=== PATIENT | female | born 1985 | race Caucasian/White ===

== ENCOUNTER 2019-11-26 10:01 | Emergency (ER) | payer SELFPAY ==
[~2019-11-26] VITALS: Ht 162.6 cm; Wt 77.1 kg
[2019-11-26 10:23] VITALS: BP 122/76
[2019-11-26] MEDS ORDERED: DIPHTH,PERTUSS(ACELL),TET TOX 0.5 ML DISP.SYRIN. VAX IM ONE (10:45)
--- NOTE | 2019-11-26 10:51 | RAD ---
2 views the right humerus without comparison for broken needle in the arm below the elbow. FINDINGS: A 6 mm radiopaque needle fragment is seen in the subcutaneous tissues just anterior to the antecubital fossa. This is only evident on one projection. IMPRESSION: 1. Small needle fragment as described. Electronically signed by: Javi Christianson MD (11/26/2019 10:48 AM) [facility]
--- NOTE | 2019-11-26 11:22 | RAD ---
EXAM: Right upper extremity venous Doppler sonogram. HISTORY: Broken needle in forearm. TECHNIQUE: Marsh scale and color Doppler sonographic imaging of the right upper extremity with spectral waveform analysis was performed. COMPARISON: None. FINDINGS: There is normal color flow, normal compressibility and there are normal spectral waveforms within the right upper extremity veins. No foreign body is seen to correspond with the reported needle within the forearm. No mass or fluid collection is seen. IMPRESSION: 1. No sonographic evidence of a foreign body within the forearm at the site of concern. 2. No Doppler evidence of venous thrombosis. Electronically signed by: Melissa Garsia MD (11/26/2019 11:19 AM) [facility]
--- NOTE | 2019-11-26 11:39 | PHYS DOC ---
Past Medical History Past Medical History: No Pertinent History Past Surgical History: No Surgical History Alcohol Use: Rarely Drug Use: Marijuana, Methamphetamine Adult General Chief Complaint Chief Complaint: OTHER COMPLAINTS [facility] HPI Patient is a 34 year old right-handed female who presents with complaint of broken needle in her arm. Patient states she was injecting herself with methamphetamine and a small new needle broke in her arm and she was not able to remove it about 45 minutes prior to arrival to ER. Patient did not remove tourniquet and presented with tourniquet in place. Patient is not up-to-date with tetanus immunization. Review of Systems Review of Systems Constitutional: Denies fever or chills [] Eyes: Denies change in visual acuity, redness, or eye pain [] HENT: Denies nasal congestion or sore throat [] Respiratory: Denies cough or shortness of breath [] Cardiovascular: No additional information not addressed in HPI [] GI: Denies abdominal pain, nausea, vomiting, bloody stools or diarrhea [] : Denies dysuria or hematuria [] Musculoskeletal: Denies back pain, reports joint pain [] Integument: Denies rash or skin lesions [] Neurologic: Denies headache, focal weakness or sensory changes [] Endocrine: Denies polyuria or polydipsia [] All other systems were reviewed and found to be within normal limits, except as documented in this note. Current Medications Current Medications Current Medications Medications (Trade) Dose Ordered Sig/Issac Start Time Stop Time Status Last Admin Dose Admin Diphtheria/ Tetanus/Acell Pertussis (Boostrix) 0.5 ml ONCE ONCE 11/26/19 10:45 11/26/19 10:57 DC 11/26/19 11:16 0.5 ML Allergies Allergies Allergies Coded Allergies Type Severity Reaction Last Updated Verified No Known Drug Allergies 11/26/19 No Physical Exam Physical Exam Constitutional: Well nourished, mild distress, non-toxic appearance. [] HENT: Normocephalic, atraumatic. Eyes: PERRLA, EOMI, conjunctiva normal, no discharge. [] Neck: Normal range of motion, no tenderness, supple, no stridor. [] Cardiovascular:Heart rate regular rhythm, no murmur [] Lungs & Thorax: Bilateral breath sounds clear to auscultation Extremities: Multiple needle stick, right patellar area with area of erythema and edema and marked tenderness without foreign body sensation or focal neuro deficit Neurologic: Alert and oriented X 3, no focal deficits noted. [] Psychologic: Affect anxious, judgement normal, mood normal. [] Current Patient Data Vital Signs Vital Signs Date Time Temp Pulse Resp B/P (MAP) Pulse Ox O2 Delivery O2 Flow Rate FiO2 11/26/19 10:23 98.3 111 20 122/76 (91) 99 Room Air 98.3 Lab Values Laboratory Tests Test 11/26/19 10:59 POC Urine HCG, Qualitative Hcg negative (Negative) EKG EKG [] Radiology/Procedures Radiology/Procedures [facility] [address] [place] [address] IMAGING REPORT Signed PATIENT: TRICIA SIMON ACCOUNT: [id number] : 1985 LOCATION: ER AGE: 34 SEX: F EXAM STATUS: REG ER ORD. PHYSICIAN: LENARD HOLLOWAY MD REASON: broken needle in arm/insertion site anteriorly below elbow PROCEDURE: HUMERUS RIGHT 2 views the right humerus without comparison for broken needle in the arm below the elbow. FINDINGS: A 6 mm radiopaque needle fragment is seen in the subcutaneous tissues just anterior to the antecubital fossa. This is only evident on one projection. IMPRESSION: 1. Small needle fragment as described. Electronically signed by: Javi Mireles MD (11/26/2019 10:48 AM) [facility] DICTATED and SIGNED BY: JAVI MIRELES MD DATE: 11/26/[address] [address] IMAGING REPORT Signed PATIENT: TRICIA SIMON ACCOUNT: [id number] : 1985 LOCATION: ER AGE: 34 SEX: F EXAM STATUS: REG ER ORD. PHYSICIAN: LENARD HOLLOWAY MD REASON: broken needle in right arm PROCEDURE: VENOUS UPPER EXTREMITY RIGHT EXAM: Right upper extremity venous Doppler sonogram. HISTORY: Broken needle in forearm. TECHNIQUE: Marsh scale and color Doppler sonographic imaging of the right upper extremity with spectral waveform analysis was performed. COMPARISON: None. FINDINGS: There is normal color flow, normal compressibility and there are normal spectral waveforms within the right upper extremity veins. No foreign body is seen to correspond with the reported needle within the forearm. No mass or fluid collection is seen. IMPRESSION: 1. No sonographic evidence of a foreign body within the forearm at the site of concern. 2. No Doppler evidence of venous thrombosis. Electronically signed by: Melissa Garay MD (11/26/2019 11:19 AM) [place] [id number] DICTATED and SIGNED BY: MELISSA GARAY MD DATE: 11/26/19 2863 Course & Med Decision Making Course & Med Decision Making Pertinent Imaging studies reviewed. (See chart for details) Evaluation of patient in ER showed 34-year-old IV drug abuser female with broken needle in her arm with tourniquet in place that was removed at arrival to ER. X-ray of right upper extremity showed a small needle in soft tissue and venous ultrasound did not show foreign body in the vein ot artery. On-call vascular surgeon Dr. Garcia was consulted at 1046 and recommended follow-up with surgeon on-call. Patient had tetanus immunization in ER and eloped before having all of the test results and discussing plan of care. Dragon Disclaimer Dragon Disclaimer This electronic medical record was generated, in whole or in part, using a voice recognition dictation system. Departure Departure Impression: Primary Impression: Foreign body (FB) in soft tissue Additional Impression: Noncompliance Disposition: 07 AGAINST MEDICAL ADVICE (eloped at 1135) Condition: STABLE Referrals: NO PCP (PCP) Problem Qualifiers LENARD HOLLOWAY MD Nov 26, 2019 11:39
== END 2019-11-26 11:42 | disposition left against medical advice (07) ==
LOC: ER 10:01
DX: S60.551A Superficial foreign body of right hand, initial encounter (principal); L53.9 Erythematous condition, unspecified; F12.90 Cannabis use, unspecified, uncomplicated; F13.90 Sedative, hypnotic, or anxiolytic use, unspecified, uncomplicated; Z91.19 Patient's noncompliance with other medical treatment and regimen; W45.8XXA Other foreign body or object entering through skin, initial encounter; Y93.89 Activity, other specified; Y92.89 Other specified places as the place of occurrence of the external cause; Y99.8 Other external cause status
CPT/HCPCS: 73060; 81025; 90471; 90715; 93971; 99284